=== PATIENT | male | born 1970 | race Caucasian/White ===

== ENCOUNTER 2021-02-01 20:49 | Emergency (ER) | payer OTHER ==
[2021-02-01 21:31] LABS: ANION GAP 13.7 mEq/L (7-13); CHLORIDE,CL 104 mmol/L (98-107); SODIUM,NA 139 mmol/L (136-145)
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
== END 2021-02-01 21:29 ==
LOC: DL.ED 20:49
DX: S42.402A Unspecified fracture of lower end of left humerus, initial encounter for closed fracture (principal); S81.011A Laceration without foreign body, right knee, initial encounter; V29.9XXA Motorcycle rider (driver) (passenger) injured in unspecified traffic accident, initial encounter
CPT/HCPCS: 36415; 73060-LT; 73560-RT; 73590-LT; 80053; 80307; 85025; 99285; 99285-25

== ENCOUNTER 2021-09-17 10:32 | Emergency (ER) | payer OTHER ==
[2021-09-17] MEDS ORDERED: Sodium Chloride 0.9% 1,000 ML IV ONE (10:33)
[2021-09-17] MEDS ORDERED: Lactated Ringers 1,000 ML IV ONE (10:33)
[2021-09-17] MEDS ORDERED: Sodium Bicarbonate 8.4% 50 MEQ/50 ML Syringe IV ONE (10:33)
[2021-09-17] MEDS ORDERED: EPINEPHrine 1:10,000 1 MG/10 ML Syringe IV ONE (10:33)
[2021-09-17] MEDS ORDERED: Norepinephrine 4 MG/4 ML SDV ONE (11:08)
[2021-09-17 11:16] LABS: ANION GAP 20.9 mEq/L (7-13); CHLORIDE,CL 100 mmol/L (98-107); PTT,PARTIAL THROMBOPLSTIN TIME 28.3 SEC (22.0-34.0); SODIUM,NA 139 mmol/L (136-145)
[2021-09-17 11:18] LABS: AMPHETAMINES,URINE NEGATIVE (NEGATIVE); BARBITURATES,URINE NEGATIVE (NEGATIVE); BENZODIAZEPINE,URINE NEGATIVE (NEGATIVE); MDMA (ECSTASY), URINE NEGATIVE (NEGATIVE); METHADONE,URINE NEGATIVE (NEGATIVE); METHAMPHETAMINES,URINE NEGATIVE (NEGATIVE); OPIATES,URINE NEGATIVE (NEGATIVE); OXYCODONE,URINE NEGATIVE (NEGATIVE); PHENCYCLIDINE,URINE NEGATIVE (NEGATIVE); TCA,URINE NEGATIVE (NEGATIVE)
[2021-09-17 11:19] LABS: ACETAMINOPHEN 0 ug/mL (10-30 (Therapeutic))
[2021-09-17 12:07] LABS: ALLEN TEST Y; BASE EXCESS ARTERIAL -5 mmol/L ((-2)-(+3)); BICARBONATE,ARTERIAL 21.9 mmol/L (22-26); O2 DELIVERY DEVICE RESUSCITATION BAG; O2 SATURATION ARTERIAL 43 % (95-100)
[2021-09-17 12:08] LABS: PCO2 ARTERIAL 54 mmHg (35-45); PO2 ARTERIAL 135 mmHg (70-100)
== END 2021-09-17 12:40 | disposition expired ==
LOC: DL.ED 10:32
DX: S02.0XXB Fracture of vault of skull, initial encounter for open fracture; W34.00XA Accidental discharge from unspecified firearms or gun, initial encounter
CPT/HCPCS: 36415; 36600; 70250; 71045; 80053; 80143; 80179; 80305-QW; 80307; 81003; 82803; 82947; 83735; 84484; 85025; 85610; 85730; 86850; 86900; 86901; 96365; 96375; 96376; 99285-25; J0171; J7030; J7120